=== PATIENT | female | born 1995 | race Caucasian/White ===

== ENCOUNTER 2019-08-13 20:11 | Emergency (ER) | payer BC ==
[~2019-08-13] VITALS: Ht 160 cm; Wt 104.5 kg
[2019-08-13 20:27] VITALS: BP 126/92; TEMP 98.4
[2019-08-13 22:39] VITALS: PULSE 72
== END 2019-08-13 22:38 | disposition home or self-care (01) ==
LOC: COL.ER 20:11
DX: S93.601A Unspecified sprain of right foot, initial encounter (principal); S80.11XA Contusion of right lower leg, initial encounter; W10.9XXA Fall (on) (from) unspecified stairs and steps, initial encounter; Y92.009 Unspecified place in unspecified non-institutional (private) residence as the place of occurrence of the external cause

== ENCOUNTER 2021-03-19 16:50 | Inpatient (IN) | payer BC ==
[~2021-03-19] VITALS: Ht 160 cm; Wt 111.8 kg
[2021-04-11] MEDS ORDERED: PRENATAL VITAMI1 TA3 PO (22:49)
[2021-04-15] VITALS (67 sets, daily range): BP systolic 100–146; BP diastolic 7–95; PULSE 65–118; TEMP 97.7–98.7
--- NOTE | 2021-04-15 06:15 | NUR ---
Presents to L&D, ambulatory, accompanied by spouse, for scheduled induction of labor.
--- NOTE | 2021-04-15 06:50 | NUR ---
LR bolus begun, as noted, reactive strip has not yet been obtained. Patient positioned in left lateral.
--- NOTE | 2021-04-15 06:58 | NUR ---
Consents obtained. Plan of care discussed. Deny any questions or concerns.
--- NOTE | 2021-04-15 07:15 | NUR ---
Pit start @ 2mU/min @ this time after reactive strip noted. Explanation to patient and spouse. Verbalize understanding, agreeable to plan of care.
[2021-04-15 07:22] LABS: BASO % 0.3 % (0.0-2.0); EOS # 0.1 (0.0-0.7); EOS % 0.7 % (0-4.0); GRAN # 7.1 (1.4-6.5); HEMATOCRIT 39.5 % (37.0-47.0); LYMPH # 2.5 (1.2-3.4); LYMPH % 23.4 % (20.0-51.0); MEAN CELL VOLUME 89 fl (80.0-100.0); MEAN CORPUSCULAR HEMOGLOBIN 29 pg (27.0-31.0); MEAN CORPUSCULAR HGB CONC 33 g/dl (33.0-37.0); MEAN PLATELET VOLUME 12.3 fl (7.4-10.4); PLATELET COUNT 185 K/mm3 (130-400); RED BLOOD COUNT 4.46 M/mm3 (4.10-5.30); REDCELL DISTRIBUTION WIDTH-CV 13.4 % (11.5-14.5)
--- NOTE | 2021-04-15 07:54 | NUR ---
Repositioned to right lateral, after noting late deceleration in conjunction with coupling contraction pattern. This explained to patient and spouse.
--- NOTE | 2021-04-15 08:02 | NUR ---
Roles in to discuss plan of care.
--- NOTE | 2021-04-15 08:09 | NUR ---
AROM by Dr. Finney, light mec fluid noted. scalp electrode placed with explanation to patient and spouse. SVE per /, well applied.
--- NOTE | 2021-04-15 09:15 | NUR ---
Rating pain of contractions "4" of 10 @ this time, stated "feels like tightening." Denies any need for pain intervention at this time.
--- NOTE | 2021-04-15 09:56 | NUR ---
Note no negative swab for Covid-19 on chart within last 7 days, patient asymptomatic, received first dose of Covid-19 vaccine on 03/28/2021. Agreeable to allowing this residential mortgage underwriter to obtain rapid swab.
--- NOTE | 2021-04-15 11:32 | NUR ---
Requests epidural @ this time. Kyle Shankar CRNA, notified. LR bolus begun.
--- NOTE | 2021-04-15 11:54 | NUR ---
1154: Kyle Shankar CRNA, here for epidural placement per patient request. 1155: Time-out performed prior to procedure with this promotion writer, Kyle Shankar CRNA, and patient spouse present in room. 1158: Local anesthetic administered by PADMINI. 1200: Epidural space obtained by FLIGHT ENGINEER. 1201: Single shot obtained by PADMINI, epidural catheter threaded. 1207: More local anesthetic administered by FLIGHT ENGINEER. 1208: Epidural space obtained, epidural catheter threaded by PADMINI. 1209: Test dose administered by FLIGHT ENGINEER. No adverse reactions noted. Patient tolerates procedure well.
--- NOTE | 2021-04-15 12:35 | NUR ---
Placed in left lateral with peanut ball following Longoria placement.
--- NOTE | 2021-04-15 13:25 | NUR ---
Right lateral with peanut ball. Note patient incontinent with stool at this time. Viviana care provided.
--- NOTE | 2021-04-15 13:45 | NUR ---
Placed in left lateral with peanut ball by CHEVY Gonzalez, at this time.
--- NOTE | 2021-04-15 14:00 | NUR ---
Rate of pitocin decreased from 30mU/min to 15mU/min @ this time, as noted continued tachysystole, despite attempts to bump out of pattern with increasing changes in rate of pitocin.
--- NOTE | 2021-04-15 14:45 | NUR ---
Repositioned in jaylen position, high fowlers, with feet lowered, and feet frogged out, or heels together. Viviana care provided, as patient incontinent of stool at this time.
--- NOTE | 2021-04-15 15:00 | NUR ---
Repositioned to right lateral with left leg in stirrup following SVE. Rate of pitocin decreased to 12mU/min @ this time, as noted, back in uterine tachysystole pattern. Note prolonged variable decel upon initial repositioning, moderate variability remains.
--- NOTE | 2021-04-15 15:52 | NUR ---
Repositioned to left lateral with left leg in stirrup. Note repositioning followed by variable deceleration. Tachysystole contraction pattern remains.
--- NOTE | 2021-04-15 16:23 | NUR ---
Assisted into modified Welcher's position. This clinical writer remains in room with patient while in this position.
--- NOTE | 2021-04-15 16:50 | NUR ---
Repositioned to supine with left hip roll, wedged to right side.
--- NOTE | 2021-04-15 17:05 | NUR ---
Right lateral with peanut ball under left leg.
--- NOTE | 2021-04-15 17:17 | NUR ---
notes IUPC almost all the way dislodged. Removed @ this time, switched back to toco.
--- NOTE | 2021-04-15 18:30 | NUR ---
Report received, care assumed. Patient resting comfortable with epidural. at side for support. Plan of care reviwed.
--- NOTE | 2021-04-15 19:15 | NUR ---
Patient with large amount of clear emesis. Emesis covers the patient, gown, and floor. Patient assisted to sitting upright in bed. New bedding and gown provided.
--- NOTE | 2021-04-15 20:00 | NUR ---
Dr. Finney to room, SVE complete/+2. After SVE FHR down to 100-110 bpm over 5 mminutes with a gradual return to baseline of [address] Finney on unit and reviews FHR tracing.
--- NOTE | 2021-04-15 20:15 | NUR ---
Patient pushing with contractions. Dr. Finney remains on unit.
--- NOTE | 2021-04-15 22:30 | NUR ---
2215 Patient pushing with contractions for [address] Finney on unit checking progress as needed, at this time Dr. Finney discusses with patient and spouse delivery for failure to descend. Patient and spouse agree. 2220 called. Pitocin turned off. Patient prepped for surgery. 2230 EFM off and patient to OR via bed.
[2021-04-16] VITALS (13 sets, daily range): BP systolic 106–128; BP diastolic 46–80; PULSE 90–108; TEMP 97.7–98.5
[2021-04-16 07:00] LABS: HEMOGLOBIN 11.2 g/dl (12.5-16.0)
[2021-04-16 07:01] LABS: HEMATOCRIT 33.4 % (37.0-47.0)
[2021-04-16] MEDS ORDERED: IBU600 MG PO (08:21)
[2021-04-16] MEDS ORDERED: PERCOCET 325 MG1 TA2 PO (08:21)
--- NOTE | 2021-04-16 09:30 | NUR ---
Initial visit; Parents thanked Pattern Mechanic for offering congratulations and God's blessings for the of their son. Pattern Mechanic thanked family for choosing [facility].
--- NOTE | 2021-04-16 18:30 | NUR ---
Report recieved. Resting in bed at this time. Videos to bedside. Up to void. Whiteboard updated. Questions invited.
[2021-04-17 08:12] VITALS: BP 115/72; PULSE 84; TEMP 97.6
== END 2021-04-17 15:40 | disposition home or self-care (01) | DRG 788 ==
LOC: OB 16:50 → LDR 04-15 06:11 → OB 04-15 10:17
PROVIDERS: ADMIT Obstetrics & Gynecology
PROC: 10D00Z1 Extraction of Products of Conception, Low, Open Approach (ICD-10-PCS; principal; 2021-04-15)
DX: O36.63X0 Maternal care for excessive fetal growth, third trimester, not applicable or unspecified (principal); O48.0 Post-term pregnancy; O62.1 Secondary uterine inertia; O99.214 Obesity complicating childbirth; E66.9 Obesity, unspecified; Z3A.40 40 weeks gestation of pregnancy; Z37.0 Single live birth
CPT/HCPCS: J0690; J1885; J2175; J2400; J2405; J2590; J2795; J3010; J7120

== ENCOUNTER 2021-04-11 22:23 | Outpatient (CLI) | payer BC ==
[~2021-04-11] VITALS: Ht 160 cm; Wt 111.8 kg
--- NOTE | 2021-04-11 22:28 | NUR ---
2227- PT PRESENTS TO LDR COMPLAINING OF DECREASED MOVEMENT, AMBULATORY TO ROOM LR3, CHANGED INTO GOWN. 2234- EFMX 2 APPLIED. MOVEMENT HEARD ON MONITOR. PT DENIES CONTRACTIONS, LEAKING FLUID OR VAGINAL BLEEDING. STATES SHE HAS FELT BABY MOVE, BUT IT IS LESS THAN NORMAL. PLAN OF CARE DISCUSSED AND QUESTIONS ANSWERED. 2239- NURSING ADMISSION HISTORY AND ASSESSMENT COMPLETE. MULTIPLE EPISODES OF MOVEMENT HEARD ON MONITOR. PT STATES SHE STILL DOES NOT FEEL THEM. DISCUSSED DIFFERENCE IN HOW MOVEMENT CAN FEEL IN LATE DUE TO LESS ROOM FOR BABY TO MOVE AND DRINKING COLD AND/OR SUGARY DRINKS TO ELICIT MOVEMENT. 2299- DR HAJI UPDATED. ORDERS RECEIVED 2315- PT DRINKING JUICE 2340- PT OFF MONITORS FOR DISMISSAL. STATES SHE IS FEELING BABY MOVE NOW. 2347- DISMISSAL INSTRUCTIONS GIVEN INCLUDING WHEN TO RETURN TO LDR AND KICK COUNTS. PT VERBALIZES UNDERSTANDING. PT DISMISSED TO HOME ACCOMPANIED BY SPOUSE.
[2021-04-11] MEDS ORDERED: PRENATAL VITAMI1 TA3 PO (22:49)
[2021-04-11 23:00] VITALS: BP 129/85; PULSE 93; TEMP 98.2
== END 2021-04-11 23:48 | disposition home or self-care (01) ==
LOC: LDRO 22:23 → LDR 22:31 → LDRO 23:48
DX: O36.8130 Decreased fetal movements, third trimester, not applicable or unspecified (principal); Z3A.39 39 weeks gestation of pregnancy
CPT/HCPCS: OP

== ENCOUNTER 2021-06-19 12:08 | Day surgery (SDC) | payer BC ==
[~2021-06-19] VITALS: Ht 160 cm; Wt 104.2 kg
[2021-06-19] VITALS (8 sets, daily range): BP systolic 118–132; BP diastolic 74–84; PULSE 82–105; TEMP 98.2
[~2021-06-19 12:08] MED LIST: IBU600 MG PO; PERCOCET 325 MG1 TA2 PO; PRENATAL VITAMI1 TA3 PO
[2021-06-19] MEDS ORDERED: NORA-BE0.35 MG PO (14:42)
[2021-06-19] MEDS ORDERED: MOTRIN 600600 MG/TAB PO (17:19)
[2021-06-19] MEDS ORDERED: PERCOCET 325 MG1 TA2 PO (17:19)
[2021-06-19] MEDS ORDERED: AMOXICILLIN 8751 TAB PO (17:22)
--- NOTE | 2021-06-19 17:59 | NUR ---
Patient to room 343 from the PACU. A&Ox4. VSS. IV CDI, fluids infusing. Lap sites x5 CDI. Reporting increased discomfort upper abdomen, no pain medication requested. Nurse oriented the patient and to location, call light and room. Assessment complete. Lungs CTAB, HRR, can be tachycardic, audible bowel sounds. CMS WNL. No further needs expressed from the patient. Post-op VS monitored. Call light within reach.
--- NOTE | 2021-06-19 18:57 | NUR ---
Patient sitting up in bed, drinking water without N/V. Pain controled with pain medication requested by the patient. Patient ordered dinner. No further needs expressed from the patient. Post op VS monitored. Call light within reach
--- NOTE | 2021-06-19 20:00 | NUR ---
UP TO BATHROOM, VOIDS WITHOUT PROBLEM. HAS KOBI SITES X5 TO ABD, GLUED AND DRY. DENIES PAIN OR NAUSEA, FINISHED DINNER TRAY WITHOUT PROBLEM.
--- NOTE | 2021-06-19 20:20 | NUR ---
REVIEWED DISCHARGE INSTRUCTIONS WITH PT, INSTRUCTED TO CALL TUESDAY FOR 2 WEEK FOLLOW UP APPT. VERBALIZED UNDERSTANDING. REMOVED SL FROM LEFT WRIST, ANGIOCATH INTACT.
== END 2021-06-19 20:25 | disposition home or self-care (01) ==
LOC: SDCO 12:08 → SURG 16:35 → SDCO 20:25
DX: K80.12 Calculus of gallbladder with acute and chronic cholecystitis without obstruction (principal); Z20.822 Contact with and (suspected) exposure to COVID-19
CPT/HCPCS: OP; J0690; J1100; J1885; J2405; J2550; J2704; J3010; J7120; Q9967